=== PATIENT | female | born 1940 | race Caucasian/White ===

== ENCOUNTER 2022-10-15 12:11 | Emergency (ER) | payer MEDICARE, SELFPAY ==
[2022-10-15] VITALS (9 sets, daily range): BP systolic 184–208; BP diastolic 70–104; PULSE 74–85; RESP 16–18; TEMP 36.5–36.8; O2SAT 93–100; BMI 74.2
--- NOTE | ~2022-10-15 | CT_ITS ---
EXAMINATION: CT HEAD WITHOUT CONTRAST CLINICAL INFORMATION: Dizziness. COMPARISON: Dizziness. TECHNIQUE: Contiguous axial imaging was performed from the skull base to vertex without intravenous administration of contrast. Coronal and sagittal reformatted images were obtained. This CT examination was performed using dose optimization techniques as appropriate, variously including the following: *Automated exposure control *Adjustment of mA and/or kV according to patient size (this includes techniques or standardized protocols for targeted exams where dose is matched to indication/reason for exam; i.e. extremities or head) *Use of iterative reconstruction technique DLP: 591 mGy-cm FINDINGS: There is mild widening of the cortical sulci and associated ventriculomegaly. The lateral ventricles are symmetrical. The third and fourth ventricles are in their normal midline position. The basilar and prepontine cisterns are unremarkable. Incidental prominent CSF space posteriorly in the posterior fossa. There is no acute intra or extracerebral abnormality. There is no mass effect or midline shift. Sections through the bony calvarium are unremarkable. The orbits are intact. The paranasal sinuses are clear. The mastoid air cells are clear. CT/CT head/brain wo IV con IMPRESSION: No acute intracranial pathology.
--- NOTE | 2022-10-15 12:24 | ECG_ITS ---
Test Reason : DIZZINESS Blood Pressure : / mmHG Vent. Rate : 077 BPM Atrial Rate : 077 BPM P-R Int : 138 ms QRS Dur : 128 ms QT Int : 416 ms P-R-T Axes : 047 -38 071 degrees QTc Int : 470 ms Normal sinus rhythm Left axis deviation Left bundle branch block Abnormal ECG No previous ECGs available Referred By: Malou Atkins Electronically Signed By:Uche Castillo
--- NOTE | 2022-10-15 12:56 | PC.NURSE ---
Pt found semi-fowlers in bed, airway open and patent, no obvious signs of distress, no dif breathing. Lung sounds clr and equal bilaterally. Skin pink, warm, and dry. Abdomen soft, non-tender, bowel sounds present all lopez. Heart sounds normal. Pt reports an episode of dizziness/lightheadedness last night then again this morning. Pt aware of plan of care
--- NOTE | 2022-10-15 13:09 | MHC.EDTECH ---
completed orthostatic vitals. patient tolerated them well. patient did not feel dizzy during the trial. vital signs were documented. RN and Provider aware.
--- NOTE | 2022-10-15 14:25 | ED_ITS ---
HPI - Dizziness General Chief Complaint: Dizziness Stated Complaint: dizzy/lightheaded when gets up per ems Time Seen by Provider: 10/15/22 13:08 Source: patient and family (Daughter) Mode of arrival: EMS History of Present Illness HPI Narrative: 81-year-old female who denies consuming any prescription medications for any underlying conditions states that yesterday she experienced a 10 minute episode lightheadedness while sitting and watching TV in gradually resolved on its own. She then states that today she experienced a similar episode that was associated with generalized weakness that prompted her to call her daughter. Her daughter states that she did have some difficulty with strength in getting to the EMS. Neither episode has been associated with any headaches, auditory/visual/speech difficulties and denies any unilateral numbness/tingling/weakness. She denies any recent illnesses, fevers, chills, shortness of breath, diaphoresis, chest pain/palpitations or abdominal discomfort. She also denies any GI or sympto ms. Related Data Previous Rx's Medication Instructions Recorded hydrochlorothiazide 25 mg tablet 25 mg PO DAILY #30 tabs 10/15/22 Allergies Allergy/AdvReac Type Severity Reaction Status Date / Time Unable to Assess Allergy Unverified 10/15/22 12:24 Review of Systems Review of Systems: Pertinent positives and negatives as stated in HPI PMFSH Past Medical History Source: nursing notes reviewed Social History Social History Alcohol intake: current Alcohol intake frequency: holidays/special occasions only Smoked in Last 30 Days: No Use of substances other than those prescribed or required for medical reasons: No Advance Directives: No Advance Directives Information Provided: No Physical Exam Vital Signs: Vital Signs: Last Vital Signs Temp 97.7 F 10/15/22 14:29 Pulse 82 10/15/22 16:08 Resp 17 10/15/22 15:17 BP 184/83 H 10/15/22 16:08 Pulse Ox 97 10/15/22 16:08 O2 Del Method Room Air 10/15/22 16:08 BMI result Body Mass Index 74.2 VITAL SIGNS: Reviewed. GENERAL: Well developed, well nourished, in no acute distress. HEAD: Normocephalic/atraumatic, no dizziness on lifting up of the head EYES: PERRLA, EOMI, no nystagmus EARS: Ext canals without abnormality, TMs non-bulging and non-erythematous NOSE: Nares patent bilateral OROPHARYNX: no oral lesions noted, posterior pharynx clear NECK: Supple, no adenopathy LUNGS: Normal breath sounds. No adventitious sounds or accessory muscle use. SpO2<97> CARDIOVASCULAR: Regular rate and rhythm without noted murmurs, no JVD or lower extremity edema. ABDOMEN: Soft, non-tender, non-distended with bowel sounds. MUSCULOSKELETAL: No tenderness, deformities, or effusions noted on gross inspection. EXTREMITIES: No cyanosis, clubbing or edema. SKIN: Inspection of the skin reveals no rashes NEUROLOGIC: Alert and oriented x 4. Strength and sensation to light touch were grossly intact x 4, no facial asymmetry, no pronator drift, cranial nerves 2-12 are grossly intact, past pointing is without noted deficits, heel to moore appears to be intact 1425: Xuan ambulated the patient in did not note any ataxic gait or listing to 1 side. NIH Stroke Scale Internal: Initial- Upon Arrival Level of Consciousness: Alert Level of Consciousness Questions: Answers both questions correctly Level of Consciousness Commands: Performs both tasks correctly Best Gaze: Normal Visual: No visual loss Facial Palsy: Normal Motor Arm (Right): No drift Motor Arm (Left): No drift Motor Leg (Right): No drift Motor Leg (Left): No drift Limb Ataxia: Absent Sensory: Normal Best Language: No aphasia Dysarthia: Normal Extinction and Inattention: No abnormality Score: 0 Medications Administered Discontinued Medications Generic Name Dose Route Start Last Admin Trade Name Freq PRN Reason Stop Dose Admin Amlodipine Besylate 5 mg 10/15/22 14:14 10/15/22 14:28 Amlodipine Besylate 5 Mg Tablet PO 10/15/22 14:15 5 mg ONCE ONE Administration Protocol Medical Decision Making Medical Decision Making MDM Narrative: 81-year-old female with history and clinical presentation that appears to be nonfocal and very low clinical suspicion for cerebellar deficits (posterior infarct), she is noted to be significantly hypertensive in suspect that this is the underlying cause. Will gently reduce blood pressure with 5 mg of Norvasc and re-evaluate. Orthostatics are negative. 1658: I reviewed all investigations, re-evaluated the patient, and my interpretation is this patient had hypertensive crisis contributing to her lightheadedness without evidence of longstanding focal deficits, there is no evidence of acute infection, anemia, electrolyte abnormalities. The urinalysis does demonstrate leukocyte esterase but there is a presence of squamous epithelium without evidence of bacteria or white blood cells. She is otherwise discharged home on hydrochlorothiazide and strict instructions to follow-up with the primary care provider PIPO. She is completely asymptomatic and feeling much better. Her son is at bedside and also heard the instructions, results. Differential Diagnosis Please see the discussion above Lab Data Please see the discussion above 10/15/22 14:36 10/15/22 14:36 Labs: Lab Results 10/15/22 10/15/22 10/15/22 Range/Units 14:36 14:36 14:36 WBC 11.9 H (4.8-10.8) X10*3/uL RBC 4.54 (4.20-5.50) X10*6/uL Hgb 14.8 (12.0-16.0) g/dl Hct 44.4 (37.0-47.0) % MCV 97.8 (80.0-98.0) fL MCH 32.6 (27.0-33.0) pg MCHC 33.3 (31.0-35.0) g/dl RDW 12.7 (11.0-16.0) % Plt Count 240 (160-400) X10*3/uL MPV 10.5 (9.4-12.3) fL Immature Gran % (Auto) 0.5 H (0.0-0.4) % Neut % (Auto) 88.6 H (45-73) % Lymph % (Auto) 7.2 L (20-40) % [place] % (Auto) 3.3 (2-11) % Eos % (Auto) 0.2 (0-4) % Baso % (Auto) 0.2 (0-2) % Lymph # (Auto) 0.9 L (1.2-4.9) X10*3/uL [place] # (Auto) 0.4 (0.1-1.2) X10*3/uL Eos # (Auto) 0.0 (0.0-0.4) X10*3/uL Baso # (Auto) 0.0 (0.0-0.2) X10*3/uL Abs Immat Gran (auto) 0.06 H (0.00-0.03) X10*3/uL Absolute Neuts (auto) 10.6 H (2.0-8.3) x10*3/uL Absolute Nucleated RBC 0.000 (0.0-0.012) X10*3/uL Nucleated RBC % (auto) 0.0 (0.0-0.2) /100WBC PT 12.5 (10.0-13.1) SEC INR 1.1 (0.9-1.1) Sodium 141 (135-145) mmol/L Potassium 4.9 (3.3-5.1) mmol/L Chloride 104 (96-108) mmol/L Carbon Dioxide 26 (22-29) mmol/L Anion Gap 16 (12-20) BUN 16 (9-16) mg/dL Creatinine 0.81 (0.5-1.4) mg/dL Estim Creat Clear Calc 92.3 Estimated GFR > 60 Random Glucose 136 H (60-115) mg/dL Calcium 9.5 (8.4-10.2) mg/dL Magnesium 2.0 (1.6-2.6) mg/dL Total Bilirubin 0.5 (0.0-1.0) mg/dL Direct Bilirubin 0.2 (0.0-0.5) mg/dL AST 24 (5-31) U/L ALT 22 (0-31) U/L Alkaline Phosphatase 69 (39-117) U/L Total Protein 6.8 (6.5-8.0) g/dL Albumin 4.0 (3.5-5.0) g/dL Urine Color Urine Appearance Urine pH (5.0-9.0) Ur Specific [place] (1.005-1.025) Urine Protein (Neg-Trace) mg/dL Urine Glucose (UA) (Negative) mg/dL Urine Ketones (Negative) mg/dL Urine Blood (Negative) Urine Nitrite (Negative) Ur Leukocyte Esterase (Negative) Urine RBC (0-2) /HPF Urine WBC (0-5) /HPF Ur Squamous Epith Cells (0-2) /HPF Urine Bacteria (None Seen) Hyaline Casts (0-2) /LPF 10/15/22 Range/Units 16:08 WBC (4.8-10.8) X10*3/uL RBC (4.20-5.50) X10*6/uL Hgb (12.0-16.0) g/dl Hct (37.0-47.0) % MCV (80.0-98.0) fL MCH (27.0-33.0) pg MCHC (31.0-35.0) g/dl RDW (11.0-16.0) % Plt Count (160-400) X10*3/uL MPV (9.4-12.3) fL Immature Gran % (Auto) (0.0-0.4) % Neut % (Auto) (45-73) % Lymph % (Auto) (20-40) % [place] % (Auto) (2-11) % Eos % (Auto) (0-4) % Baso % (Auto) (0-2) % Lymph # (Auto) (1.2-4.9) X10*3/uL [place] # (Auto) (0.1-1.2) X10*3/uL Eos # (Auto) (0.0-0.4) X10*3/uL Baso # (Auto) (0.0-0.2) X10*3/uL Abs Immat Gran (auto) (0.00-0.03) X10*3/uL Absolute Neuts (auto) (2.0-8.3) x10*3/uL Absolute Nucleated RBC (0.0-0.012) X10*3/uL Nucleated RBC % (auto) (0.0-0.2) /100WBC PT (10.0-13.1) SEC INR (0.9-1.1) Sodium (135-145) mmol/L Potassium (3.3-5.1) mmol/L Chloride (96-108) mmol/L Carbon Dioxide (22-29) mmol/L Anion Gap (12-20) BUN (9-16) mg/dL Creatinine (0.5-1.4) mg/dL Estim Creat Clear Calc Estimated GFR Random Glucose (60-115) mg/dL Calcium (8.4-10.2) mg/dL Magnesium (1.6-2.6) mg/dL Total Bilirubin (0.0-1.0) mg/dL Direct Bilirubin (0.0-0.5) mg/dL AST (5-31) U/L ALT (0-31) U/L Alkaline Phosphatase (39-117) U/L Total Protein (6.5-8.0) g/dL Albumin (3.5-5.0) g/dL Urine Color Yellow Urine Appearance Clear Urine pH 7.0 (5.0-9.0) Ur Specific [place] 1.015 (1.005-1.025) Urine Protein Negative (Neg-Trace) mg/dL Urine Glucose (UA) Negative (Negative) mg/dL Urine Ketones Negative (Negative) mg/dL Urine Blood Negative (Negative) Urine Nitrite Negative (Negative) Ur Leukocyte Esterase Moderate (2+) H (Negative) Urine RBC 0-2 (0-2) /HPF Urine WBC 0-5 (0-5) /HPF Ur Squamous Epith Cells 3-5 (0-2) /HPF Urine Bacteria None Seen (None Seen) Hyaline Casts 0-2 (0-2) /LPF Independent Interpretation I performed an independent interpretation of an: EKG Interpretation: Normal sinus rhythm, LBBB (baseline), HR-77, not meeting Sgarbossa criteria, MD/QTC is within normal limits Radiology Impression Radiologist Impression: My interpretation is in agreement with radiology's impression of the imaging studies. Chronic Conditions Patient?s care impacted by: Hypertension Discharge Plan Discharge Clinical Impression: Hypertensive crisis, Lightheaded Patient Disposition: Home, Self-Care Instructions: Lightheadedness (ED), Dizziness (ED), DASH Eating Plan (ED) Additional Instructions: 1. Please start your medication tomorrow morning and also purchase a blood pressure cuff to check your blood pressures in the morning prior to medication and in the evening prior to going to bed. This information will be helpful to your primary care provider. 2. You must follow up with primary care provider in the next 1-2 days if at all possible. Return to the ER for any worsening symptoms. Prescriptions: New hydrochlorothiazide 25 mg tablet 25 mg PO DAILY Qty: 30 0RF
[2022-10-15] MEDS: amLODIPine Besylate 5 MG TABLET PO (14:28)
--- NOTE | 2022-10-15 14:30 | PC.NURSE ---
Pt seen by Xuan Stroke RN. Pt swallow eval done, passed. Pt/daughter aware of plan of care.
--- NOTE | 2022-10-15 14:31 | MHC.STROKE ---
10/15/22 1205 [facility] PRE-NOTIFIED DIZZINESS, HIGH BP, NO STROKE ALERT. ONSET AROUND 11-11:30. ARRIVED AT [id number]. SBP ELEVATED 180'S-190'S. SEEN BY PROVIDER. CTH ORDERED. I DISCUSSED CASE WITH PROVIDER. I MET WITH THE PATIENT AND DAUGHTER. THE PATIENT HAS NO MEDICAL HISTORY AND DOES NOT SEE ANY DOCTORS, NOR DOES SHE HAVE A PCP. SHE C/O OF DIZZINESS/LIGHTHEADED YESTERDAY THAT LASTED 10 MINUTES. TODAY AROUND 11 WHILE STANDING SHE BECAME DIZZY AND LIGHTHEADED AND THIS TIME IT DID NOT GO AWAY AND THE DAUGHTER HAD TO ASSIST HER, THEY CALLED 911. SHE DOES NOT CHECK HER BP AT HOME. HER PRESSURE REMAINS ELEVATED, HER FACE IS FLUSHED. I HAD HER SIT HERSELF ON THE EDGE OF THE BED AND GET UP AND WALK AND SHE WAS ABLE TO DO THAT WITH MINIMAL ASSISTANCE. SHE STATES SHE IS FEELING IMPROVED. HER LABS ARE DIFFICULT TO OBTAIN, POOR ACCESS. SHE PASSED THE NURSING SWALLOW SCREEN. I INITIATED STROKE PREVENTION EDUCATION. EXPLAINED THE PLAN OF CARE. ALL OF THIS WAS REPORTED TO THE NURSE AND THE PROVIDER. I WILL CONTINUE TO FOLLOW. LABS AND CT RESULTS PENDING.
[2022-10-15 14:41] LABS: MANUAL DIFF FLAG NO
[2022-10-15 14:43] LABS: Basophils Percent Auto 0.2 % (0-2); Eosinophils Percent Auto 0.2 % (0-4); Hematocrit 44.4 % (37.0-47.0); Hemoglobin 14.8 g/dl (12.0-16.0); Imm Gran Abs Auto 0.06 X10*3/uL (0.00-0.03); Imm Gran Pct Auto 0.5 % (0.0-0.4); Lymphocytes Absolute Auto 0.9 X10*3/uL (1.2-4.9); Lymphocytes Percent Auto 7.2 % (20-40); Mean Corpuscular HGB Conc 33.3 g/dl (31.0-35.0); Mean Corpuscular Hemoglobin 32.6 pg (27.0-33.0); Mean Corpuscular Volume 97.8 fL (80.0-98.0); Mean Platelet Volume 10.5 fL (9.4-12.3); Monocytes Absolute Auto 0.4 X10*3/uL (0.1-1.2); Monocytes Percent Auto 3.3 % (2-11); Neutrophils Absolute Auto 10.6 x10*3/uL (2.0-8.3); Neutrophils Percent Auto 88.6 % (45-73); Platelet Count 240 X10*3/uL (160-400); Red Blood Count 4.54 X10*6/uL (4.20-5.50); Red Cell Distribution Width 12.7 % (11.0-16.0); White Blood Count 11.9 X10*3/uL (4.8-10.8)
[2022-10-15 14:47] LABS: INTERNATIONAL NORM RATIO 1.1 (0.9-1.1); Prothrombin Time 12.5 SEC (10.0-13.1)
[2022-10-15 14:56] LABS: Alanine Aminotransferase 22 U/L (0-31); Alkaline Phosphatase 69 U/L (39-117); Anion Gap 16 (12-20); Aspartate Amino Transferase 24 U/L (5-31); Bilirubin Direct 0.2 mg/dL (0.0-0.5); Bilirubin Total 0.5 mg/dL (0.0-1.0); Blood Urea Nitrogen 16 mg/dL (9-16); Calcium 9.5 mg/dL (8.4-10.2); Carbon Dioxide 26 mmol/L (22-29); Chloride 104 mmol/L (96-108); Creatinine Clr Calc Pharmacy 92.3; Estimated Glomerular Filt Rate > 60; Glucose Random 136 mg/dL (60-115); Potassium 4.9 mmol/L (3.3-5.1); Sodium 141 mmol/L (135-145); Total Protein 6.8 g/dL (6.5-8.0)
[2022-10-15 16:21] LABS: Appearance Urine Clear; Color Urine Yellow; Glucose Urine UA Negative (Negative); Leukocyte Esterase Urine Moderate (2+) (Negative); Nitrite Urine Negative (Negative); Specific Gravity - Urine 1.015 (1.005-1.025); UMIC TRIGGER UACC YES; Urine Blood Negative (Negative); Urine Ketones Negative (Negative); Urine Protein Negative (Neg-Trace)
[2022-10-15 16:37] LABS: Bacteria Urine None Seen (None Seen); Hyaline Casts Urine 0-2 /LPF (0-2); RBC Urine 0-2 /HPF (0-2); WBC Urine 0-5 /HPF (0-5)
== END 2022-10-15 18:17 | disposition home or self-care (01) ==
PROVIDERS: Physician Assistant; Emergency Provider Student in an Organized Health Care Education/Training Program
DX: R42 Dizziness and giddiness (principal); I16.0 Hypertensive urgency; Z79.899 Other long term (current) drug therapy
CPT/HCPCS: 36415; 70450; 80048; 80076; 81001; 83735; 85025; 85610; 93005; 99284; 99285

== ENCOUNTER 2024-02-22 07:57 | Outpatient (REF) | payer MEDICARE, SELFPAY | END 2024-02-22 07:58 | disposition home or self-care (01) | LOC: HO.SH 07:57 | PROVIDERS: Visit Provider Nurse Practitioner Family | DX: Z01.118 Encounter for examination of ears and hearing with other abnormal findings (principal); H90.3 Sensorineural hearing loss, bilateral | CPT/HCPCS: 92557; 92567 ==